=== PATIENT | female | born 1945 | race Caucasian/White ===

== ENCOUNTER → 2016-08-16 | Outpatient (CLI) | payer MEDICARE, OTHER ==
--- NOTE | ~2016-08-16 | CT55 ---
[facility] A Service of [facility] RADIOLOGY TEXT RESULTS PATIENT: BAM CAVAZOS LOCATION: [facility] : 43 UNIT #: [id number] AGE: [address]: Tino Stern MD SEX: F ORDER DR: [id number] [place], [place] [address] [id number] O MR#: [id number] [facility] #: [id number] NAME: BAM CAVAZOS : 1945 SEX: F STUDY DATE/TIME: 08/16/2016 13:58 UNIT: [facility] ROOM: STUDY DESCRIPTION: CT Chest W Con Attending Physician: Tino Stern M.D. Referring Physician: Tino Stern M.D. Ordering Physician: Tino Stern M.D. Primary Care Physician: Tino Stern M.D. MEDICAL IMAGING REPORT This report is preliminary unless electronic signature is present EXAM CT chest with contrast. INDICATIONS Six month followup pulmonary nodule. TECHNIQUE CT scan of the chest was performed following the administration of IV contrast. Coronal and sagittal reformatted images were obtained. This CT exam was performed with one or more of the following radiation dose reduction techniques: automatic exposure control, adjustment of mA and/or kV according to patient size, and iterative reconstruction. COMPARISON 02/26/2016 FINDINGS Stable focal tiny area of nodular thickening or nodule in the region of the left major fissure on image 29. No new nodule. No lymphadenopathy. There is some thickening of the distal esophagus. This may represent esophagitis or reflux. Correlate clinically. Further evaluation with endoscopy could also be considered depending on the patient's clinical symptoms. Limited imaging of the upper abdomen is unremarkable. The bone windows are stable. IMPRESSION 1. Stable tiny nodular density in the region of left major fissure. This could be followed up again in one more year to confirm continued stability. It has a benign appearance. 2. No new nodules. 3. There is some thickening of the distal esophagus which is nonspecific [facility] A Service of [facility] RADIOLOGY TEXT RESULTS PATIENT: BAM CAVAZOS LOCATION: [facility] : 43 UNIT #: [id number] AGE: [address]: Tino Stern MD SEX: F ORDER DR: and may be due to esophagitis, possibly from reflux. Correlate clinically with any symptoms. Dictated by... Anupam Tobin M.D. THIS IS AN ELECTRONICALLY VERIFIED REPORT Anupam Tobin M.D. at 08/21/2016 1:32 PM Sancho TD: 08/17/2016 02:54 JOB #: [id number] MEDICAL IMAGING REPORT Page 1 of 1 COPY
[2016-08-16 17:10] LABS: POC - CREATININE 0.98 mg/dL (0.44-1.03)
== END | disposition home or self-care (01) ==
LOC: CCAT 12:57
PROVIDERS: Family Medicine
DX: R91.8 Other nonspecific abnormal finding of lung field (principal); K22.8 Other specified diseases of esophagus
CPT/HCPCS: 71260; 82565; Q9967